=== PATIENT | female | born 1970 | race Hispanic/Latino ===

== ENCOUNTER 2019-09-08 13:02 | Emergency (ER) | payer OTHER, SELFPAY ==
[2019-09-08] MEDS ORDERED: Lidocaine 1% (PF) 30 ML VIAL ONE (13:19)
[2019-09-08] MEDS ORDERED: Acetaminophen 500 MG TAB ONE (13:23)
[2019-09-08] MEDS ORDERED: Bacitracin 1 PK ONE (13:45)
== END 2019-09-08 14:19 | disposition home or self-care (01) ==
LOC: NAV ERS 13:02 → EDBD 13:02 → NAV ERS 14:19
DX: S61.217A Laceration without foreign body of left little finger without damage to nail, initial encounter (principal); S20.212A Contusion of left front wall of thorax, initial encounter; S00.83XA Contusion of other part of head, initial encounter; S00.00XA Unspecified superficial injury of scalp, initial encounter; Y04.0XXA Assault by unarmed brawl or fight, initial encounter
CPT/HCPCS: 12001; 99282; J2001

== ENCOUNTER 2019-09-17 18:20 | Emergency (ER) | payer SELFPAY | END 2019-09-17 18:45 | disposition home or self-care (01) | LOC: NAV ERS 18:20 | DX: S61.217D Laceration without foreign body of left little finger without damage to nail, subsequent encounter (principal) ==